=== PATIENT | female | born 1980 | race Caucasian/White ===

== ENCOUNTER 2021-11-28 08:53 | Outpatient (CLI) | payer OTHER, SELFPAY | END 2021-11-28 08:54 | disposition home or self-care (01) | PROVIDERS: Visit Provider Registered Nurse | DX: Z01.419 Encounter for gynecological examination (general) (routine) without abnormal findings (principal); F41.9 Anxiety disorder, unspecified | CPT/HCPCS: 84443 ==

== ENCOUNTER 2021-12-15 08:01 | Outpatient (CLI) | payer OTHER, SELFPAY ==
--- NOTE | 2021-12-15 08:15 | CRLHL7_ITS ---
For Patients: As a result of the Century Cures Act, medical imaging exams and procedure reports are released immediately into your electronic medical record. You may view this report before your referring provider. If you have questions, please contact your health care provider. INDICATION: Palpable lump in the right axilla. TECHNIQUE: Ultrasound of the right axilla with real-time grayscale and color Doppler imaging. COMPARISON: None. FINDINGS: There are 2 lymph nodes in the right axilla with normal morphology. Normal thin cortices with preserved echogenic casandra. The lymph nodes measure 1.5 x 1.0 x 0.5 cm and 1.4 x 0.9 x 0.7 cm. Nonenlarged with normal short axes. No mass or lymphadenopathy in the right axilla. IMPRESSION: Lymph nodes in the right axilla with normal size and morphology. Dictated by Salvatore Littlejohn MD @ 12/15/2021 8:52:07 AM (Electronically Signed)
== END 2021-12-15 08:02 | disposition home or self-care (01) ==
LOC: US 08:02
PROVIDERS: Visit Provider Registered Nurse
DX: R22.31 Localized swelling, mass and lump, right upper limb (principal)
CPT/HCPCS: 76882

== ENCOUNTER 2022-06-04 16:44 | Outpatient (CLI) | payer OTHER, SELFPAY ==
--- NOTE | 2022-06-04 17:00 | CRLHL7_ITS ---
For Patients: As a result of the Century Cures Act, medical imaging exams and procedure reports are released immediately into your electronic medical record. You may view this report before your referring provider. If you have questions, please contact your health care provider. LOWER EXTREMITY VENOUS INSUFFICIENCY, 06/05/2022 CLINICAL HISTORY: Right calf pain, varicose veins. COMPARISON: None. TECHNIQUE: The lower extremity veins were examined with collins-scale ultrasound, color-flow and Doppler spectral analysis. Compressibility of the veins by transducer pressure was used to evaluate the presence or absence of DVT/SVT at sites per exam specific protocol. Assessment of venous competence was performed by Doppler spectral analysis and was performed and documented at exam specific sites in an upright position for venous insufficiency studies. FINDINGS: DEEP SYSTEM: RIGHT: Vessel: CFV: Competent. SFV Prox: Competent. SFV Mid: Competent. SFV Distal: Competent. Pop: Competent. PTV1: Competent. PTV2: Competent. SUPERFICIAL SYSTEM: RIGHT: Vessel: SFJ: Competent. GSV Thigh Prox: Competent. GSV Thigh Mid: Competent. GSV Thigh Distal: Competent. GSV Calf Prox: Competent. GSV Calf Mid: Competent. GSV Calf Distal: Competent. LSV Prox: Competent. LSV Mid: Incompetent. FINDINGS: Right lower extremity: -No deep venous thrombosis or incompetence. -No superficial venous thrombosis. -Superficial venous incompetence in the SSV in the mid calf and incompetency of a wire splicer vein in the mid calf arising from the SSV. Duration of Retrograde Flow (Seconds) Deep Veins Superficial Veins Supervisor Anodizing veins PERFORATORS Supervisor Anodizing Location Diam (mm) Mid Calf SSV mid to PTVs 2.8 Incompetent Right mid SSV 0.6 seconds Supervisor Anodizing Vein 1 second. IMPRESSION: Right lower extremity: -No deep venous thrombosis or incompetence. -No superficial venous thrombosis. -Superficial venous incompetence in the mid calf at the SSV corresponding to site of focal pain. -Supervisor Anodizing vein in the midcalf arising from the SSV with incompetence. Clarissa Frye M.D. Vascular and Interventional Radiology [email or web address] Buster Transcribed: 9:25 a.[email or web address] JR/Dictated by: Clarissa Frye MD @ 06/08/2022 8:44:00 AM (Electronically Signed)
== END 2022-06-04 16:45 | disposition home or self-care (01) ==
LOC: US 16:45
DX: I83.813 Varicose veins of bilateral lower extremities with pain (principal)
CPT/HCPCS: 93971

== ENCOUNTER 2022-10-30 07:47 | Outpatient (CLI) | payer OTHER, SELFPAY ==
--- NOTE | 2022-10-30 07:45 | CRLHL7_ITS ---
For Patients: As a result of the Century Cures Act, medical imaging exams and procedure reports are released immediately into your electronic medical record. You may view this report before your referring provider. If you have questions, please contact your health care provider. BILATERAL SCREENING MAMMOGRAM WITH COMPUTER-AIDED DETECTION AND TOMOSYNTHESIS TECHNIQUE: CC, MLO and implant-displaced views were obtained. These mammographic images have been obtained using full-field digital technique. These mammographic images were interpreted with the benefit of computer-aided detection. Breast tomosynthesis was used in this interpretation. COMPARISON FILM: 09/02/21, 08/27/20. FINDINGS: The breasts are extremely dense, which lowers the sensitivity of mammography. IMPRESSION: There is no radiographic evidence for malignancy. ASSESSMENT: BI-RADS Category 2: Benign RECOMMENDATION: Routine screening mammogram in 1 year. A lay language report of this examination will be provided to the patient. ANDRIY DAMIAN M.D. Diagnostic Radiologist [email or web address] Transcribed: 10/30/2022, 3:[address]/Dictated by: Andriy Damian MD @ 10/30/2022 10:06:00 AM (Electronically Signed)
== END 2022-10-30 07:48 | disposition home or self-care (01) ==
LOC: MAMMO 07:48
PROVIDERS: Visit Provider Registered Nurse
DX: Z12.31 Encounter for screening mammogram for malignant neoplasm of breast (principal); R92.2 Inconclusive mammogram
CPT/HCPCS: 77063; 77067

== ENCOUNTER 2023-05-03 13:26 | Outpatient (CLI) | payer OTHER, SELFPAY ==
[2023-05-03 19:50] LABS: Bacterial Vaginosis* NEGATIVE (No Detected); Candida glab/krus NOT DETECTED (No Detected); Candida species NOT DETECTED (No Detected); Trichomonas vaginalis NOT DETECTED (No Detected)
== END 2023-05-03 13:27 | disposition home or self-care (01) ==
PROVIDERS: PCP Family Medicine; Visit Provider Family Medicine
DX: N89.8 Other specified noninflammatory disorders of vagina (principal); Z11.3 Encounter for screening for infections with a predominantly sexual mode of transmission; Z13.220 Encounter for screening for lipoid disorders; Z83.49 Family history of other endocrine, nutritional and metabolic diseases
CPT/HCPCS: 80053; 80061; 81513; 86258; 86803; 87481; 87661

== ENCOUNTER 2023-06-09 18:00 | Outpatient (CLI) | payer OTHER, SELFPAY ==
--- OUTSIDE RECORDS SUMMARY | 2023-06-09 18:03 | XMS_ITS | Clinical Summary ---
Author Name Unknown Organization [email or web address] [facility] Address [place], [place] [address] Care Team Providers Care Cook Dessert Name Role Phone Pcp, No Primary Care Provider Unavailabl e Allergies No known active allergies Medications Medication Sig Dispensed Refills Start Date End Date Status terbinafine (LAMISIL) 250 mg tabletIndications:Robles matophytosis of nail Take one tablet once daily for 7 days every 2 months. 28 tablet 3 01/11/2014 Active SUMAtriptan (IMITREX) 50 mg tablet Take 50 mg by mouth 2 times daily if needed for Migraine. Give at minimum 2hrs apart. Max Dose: 200mg per 24hrs. 0 Active MULTIVITAMIN (MULTIPLE VITAMIN ORAL) Take by mouth. 0 Active Encounters Date Type Department Care Team Description 05/04/2023 Lab Requisition [facility] [phone] Naty Barrett MD from Last 3 Months Social History Tobacco Use Types Packs/Day Years Used Date Smoking Tobacco: Never Alcohol Use Standard Drinks/Week Comments Not Asked 0 (1 standard drink = 0.6 oz pur e alcohol) Sex and Gender Information Value Date Recorded Sex Assigned at Not on file Gender Identity Not on file Sexual Orientation Not on file Obstetrics History Last Filed Vital Signs Vital Sign Reading Time Taken Comments Blood Pressure 110/75 10/29/2016 8:30 AM CDT Pulse 83 10/29/2016 8:30 AM CDT Temperature 36.6 ??C (97.9 ??F) 10/29/2016 8:20 AM CD T Respiratory Rate 16 10/29/2016 8:30 AM CDT Oxygen Saturation 99% 10/29/2016 8:30 AM CDT Inhaled Oxygen Concentration - - Weight 61.7 kg (136 lb) 10/29/2016 6:55 AM CDT Height 177.8 cm (5' 10) 10/29/2016 6:55 AM CDT Body Mass Index 19.51 10/29/2016 6:55 AM CDT Plan of Treatment Health Maintenance Due Date Last Done Comments COVID-19 vaccine series (#1) 01/23/1981 Tdap 07/25/1991 Depression screening for age 12+ 1992 HIV for age 15-65 07/25/1995 Hepatitis C screening for age 18-79 1998 Tetanus booster 2000 BMI (ht and wt on same day) for age 18+ 07/28/2017 07/28/2016 Influenza for age 9-49 12/18/2022 Pap test for age 21-65 05/03/2026 , 05/03/2023, 11/18/2018, Additional history exists Pneumococcal series for age 6-64 Aged Out No longer eligible based on patient's age to complete this topic Medical Devices Implanted Type Area Hl7 Interface Developer Device Identifier Shelf Expiration Date Model / Serial / Lot [id number] 7breast 325cc Memorygel Rnd High Smooth Silcn Implanted:Qty: 1 on 10/29/2016 by Andriy Badillo MD at [facility] Explanted:at [facility] (Quantity not on file) Right: Breast [employer] [place] [employer] 01/04/2021 [id number] # / [id number] 7breast 325cc Memorygel Rnd High Smooth Silcn Implanted:Qty: 1 on 10/29/2016 by Andriy Badillo MD at [facility] Explanted:at [facility] (Quantity not on file) Left: Breast [employer] 11/05/2020 [id number] # / [id number] Procedures Procedure Name Priority Date/Time Associated Diagnosis Comments LAB TRACKING EVENT Routine 05/03/2023 1: 45 PM WEB MARKETING INTERN HARP ACTION ASSEMBLER THIN PREP PAP SCREEN IMAGED Routine 05/03/2023 1:45 PM WEB MARKETING INTERN HPV THIN PREP Routine 05/03/2023 1:45 PM WEB MARKETING INTERN from Last 3 Months Results * LAB TRACKING EVENT (05/03/2023 1:45 PM WEB MARKETING INTERN) Other (Other) Client Collect / Unknown 05/03/2023 1:45 PM WEB MARKETING INTERN 05/04/2023 3:16 PM WEB MARKETING INTERN Naty Barrett MD LAB BILL ONLY [facility] [address] [place] [address], * HARP ACTION ASSEMBLER THIN PREP PAP SCREEN IMAGED (05/03/2023 1:45 PM WEB MARKETING INTERN) Case Report Gynecologic Cytology Report ? Case: [id number] ? Authorizing Provider: ??Naty Barrett MD ?? Collected: ? 05/03/2023 1345 ? Ordering Location: ? [facility] ?Received: ?05/04/2023 1809 ? First Screen: ?Helio, Karlo ? Specimen: ?HARP ACTION ASSEMBLER ThinPrep Vial Screening, Cervical ? 05/12/2023 10:05 AM WEB MARKETING INTERN [employer] [facility]AT[facility]-C ENTRAL LABORATORY INTERPRETATION/ RESULT NEGATIVE FOR INTRAEPITHELIAL LESION OR MALIGNANCY (NIL) (none) 05/12/2023 10:05 AM [facility] IMEN ADEQUACY Satisfactory for evaluation Endocervical component present 05/12/2023 10:05 AM [facility] HPV REQUEST HPV and PAP 05/12/2023 10:05 AM [facility] Date of LMP 05/12/2023 10:05 AM [facility] Comment:unknown Last Pap Date 11/18/2018 05/12/2023 10:05 AM [facility] Abnormal Pap or Flora Bx in last 5 years No 05/12/2023 10:05 AM [facility] Flora Bx Done Today No 05/12/2023 10:05 AM [facility] Additional Information 05/12/2023 10:05 AM [facility] Comment: Interpreted at [facility] - [address] [place] [id number] Automated Review Successful 05/12/2023 10:05 AM [facility] Comment:Specimen processed s uccessfully by automated drapery supervisor device, ThinPrep Imaging System, [employer] ANCILLARY TESTING HARP ACTION ASSEMBLER HPV Ordered, Please see separate report 05/12/2023 10:05 AM [facility] Note The pap test is a screening technique, not a diagnostic procedure. It is used primarily to screen for squamous cancers and precursor lesions. Published studies have shown that it is subject to both false negative and false positive results. The pap test should not be used as the sole means to diagnose or exclude pre-malignant and malignant lesions. 05/12/2023 10:05 AM [facility] Other (Cervical) 05/03/2023 1:45 PM WEB MARKETING INTERN 05/04/2023 6:09 PM WEB MARKETING INTERN Naty Barrett MD PATHOLOGY/CYTOLOG Y [facility] [address] [place] [address], * HPV HIGH RISK (05/03/2023 1:45 PM WEB MARKETING INTERN) TYPE 16 Negative Negative 05/06/2023 5:31 PM WEB MARKETING INTERN [facility] TYPE 18 Negative Negative 05/06/2023 5:31 PM WEB MARKETING INTERN [facility] OTHER HIGH RISK TYPES Negative Negative 05/06/2023 5:31 PM WEB MARKETING INTERN [facility] Other (Cervical) 05/03/2023 1:45 PM WEB MARKETING INTERN 05/04/2023 6:09 PM WEB MARKETING INTERN Narrative [facility] - 05/06/2023 5:31 PM WEB MARKETING INTERN HPV types 16, 18, 31, 33, 35, 39, 45, 51, 52, 56, 58, 59, 66 and 68 DNA were undetectable or below the pre-set threshold. Methodology: Vignesh Josiah 4800 HPV Test Naty Barrett MD MICROBIOLOGY [facility] [address] [place] [address], from Last 3 Months Advance Directives Latest Code Status on File Code Status Date Activated Date Inactivated Comments Full Code 10/29/2016 6:54 AM 10/29/2016 12:42 PM Care Teams Cook Dessert Relationship Specialty Start Date End Date Pcp, No . PCP - General 10/28/16
== END 2023-06-09 18:01 | disposition home or self-care (01) ==
LOC: LKVREF 18:01
PROVIDERS: PCP Family Medicine; Visit Provider Nurse Practitioner Family
DX: M79.675 Pain in left toe(s) (principal)
CPT/HCPCS: 84550

== ENCOUNTER 2024-01-04 16:43 | Outpatient (CLI) | payer OTHER, SELFPAY ==
--- NOTE | 2024-01-04 16:40 | CRLHL7_ITS ---
For Patients: As a result of the Century Cures Act, medical imaging exams and procedure reports are released immediately into your electronic medical record. You may view this report before your referring provider. If you have questions, please contact your health care provider. BILATERAL SCREENING MAMMOGRAM WITH COMPUTER-AIDED DETECTION AND TOMOSYNTHESIS TECHNIQUE: CC, MLO and Implant displaced views were obtained. These mammographic images have been obtained using full-field digital technique. These mammographic images were interpreted with the benefit of computer-aided detection. Breast Tomosynthesis was used in this interpretation. COMPARISON FILM: 10/30/22, 09/02/21, 08/27/20. FINDINGS: The breasts are extremely dense, which lowers the sensitivity of mammography. IMPRESSION: There is no radiographic evidence for malignancy. ASSESSMENT: BI-RADS Category 2: Benign RECOMMENDATION: Routine screening mammogram in 1 year. A lay language report of this examination will be provided to the patient. Andriy Gorman M.D. Diagnostic Radiologist [email or web address] SP/Dictated by: Andriy Gorman MD @ 01/05/2024 8:16:00 AM (Electronically Signed)
--- OUTSIDE RECORDS SUMMARY | 2024-01-04 16:45 | XMS_ITS | Clinical Summary ---
Author Organization [facility] Address [place], [place] [address] Care Team Providers Care Agitator Operator Name Role Phone Pcp, No Primary Care [...] 2hrs apart. Max Dose: 200mg per 24hrs. Active MULTIVITAMIN (MULTIPLE VITAMIN ORAL) Take by mouth. Active Encounters Date Type Department Care Team Description 11/23/2023 [facility] [address] [place] [address] [place] Park MD from Last 3 Months Immunizations Name Administration Dates Next Due Influenza, IIV3 (Age 6-35 mos) 03/08/2014 Td (Age >=7 Years) 11/02/2003 Tdap 07/26/2014,12/26/2013 Social History Tobacco Use Types Packs/Day Years [...] Health Maintenance Due Date Last Done Comments Depression screening for age 12+ 1992 HIV for age 15-65 07/25/1995 Hepatitis C screening for age 18-79 1998 BMI (ht and wt on same day) for age 18+ 07/28/2017 07/28/2016 COVID-19 vaccine series (2022- season) 2023 Influenza for age 9-49 12/19/2023 Tetanus booster 07/26/2024 07/26/2014, 12/2013, 11/02/2003 Pap test for age 21-65 05/03/2026 , 05/03/2023, 11/18/2018, Additional history exists Tdap Completed 07/26/2014, 12/26/2013 Pneumococcal series for age 6-64 Aged Out No longer eligible based on patient's age to complete this topic Medical Devices Implanted Type Area Systems Test Analyst Device Identifier Shelf Expiration Date Model / Serial / Lot [id number] 7breast 325cc Memorygel Rnd High Smooth Silcn Implanted:Qty: 1 on 10/29/2016 by Andriy Badillo MD at [facility] Explanted:at [facility] (Quantity not on file) Right: Breast [employer] 01/04/2021 [id number] # / [id number] / [id number] 7breast 325cc Memorygel Rnd High Smooth Silcn Implanted:Qty: 1 on 10/29/2016 by Andriy Badillo MD at [facility] Explanted:at [facility] (Quantity not on file) Left: Breast [employer] 11/05/2020 [id number] # / [id number] / [id number] Procedures Procedure Name Priority Date/Time Associated Diagnosis Comments HPV HIGH RISK Routine 05/03/2023 1:45 PM COUNTY CORONER from Last 3 Months or Most Recently Relevant to Health Maintenance Results * HPV HIGH RISK (05/03/2023 1:45 PM COUNTY CORONER) TYPE 16 Negative Negative 05/06/2023 5:31 PM COUNTY CORONER [facility] TYPE 18 Negative Negative 05/06/2023 5:31 PM COUNTY CORONER [facility] OTHER HIGH RISK TYPES Negative Negative 05/06/2023 5:31 PM COUNTY CORONER [facility] Other (Cervical) 05/03/2023 1:45 PM COUNTY CORONER 05/04/2023 6:09 PM COUNTY CORONER Narrative [facility] - 05/06/2023 5:31 PM COUNTY CORONER HPV types 16, 18, 31, 33, 35, 39, 45, 51, 52, 56, 58, 59, 66 and 68 DNA were undetectable or below the pre-set threshold. Methodology: Vignesh Josiah 4800 HPV Test Naty Barrett MD MICROBIOLOGY [facility] [address] [place] [address], from Last 3 Months or Most Recently Relevant to Health Maintenance Advance Directives * Full Code (Latest Code Status on File) Date Activated Date Inactivated Comments 10/29/2016 6:54 AM 10/29/2016 12:42 PM Care Teams Agitator Operator Relationship Specialty Start Date End Date Pcp, No . PCP - General 10/28/16
--- OUTSIDE RECORDS SUMMARY | 2024-01-04 16:45 | XMS_ITS | Encounter Summary ---
Author Organization [facility] Address [address] [place] [id number] Phone CareEverywhereSuppor Care Team Providers Care Content Production Specialist Name Role Phone Unavailable Primary Care Provider Unavailabl e Encounter Details Date Type Department Care Team (Late st Contact Info) Description 11/17/2023 Claims Summary [facility] [address] [place] [address] Provider, Claims Summary External, [address] [place] [address] Social History Tobacco Use Types Packs/Day Years Used Date Smoking Tobacco: Never Assessed Sex and Gender Information Value Date Recorded Sex Assigned at Not on file Gender Identity Not on file Sexual Orientation Not on file documented as of this encounter Plan of Treatment Not on file documented as of this encounter Visit Diagnoses Not on filedocumented in this encounter
--- OUTSIDE RECORDS SUMMARY | 2024-01-04 16:45 | XMS_ITS | Clinical Summary ---
Author Organization [facility] Address [address] [place] [address] Phone [email or web address] [email or web address] Care Team Providers Care Stopboard Assembler Name Role Phone Unavailable Primary Care Provider Unavailabl e Encounters Date Type Department Care Team Description 12/29/2023 Claims Summary [facility] [address] [place] [address] Provider, Claims Summary MD Mello 11/17/2023 Claims Summary [facility] [address] [place] [address] Provider, Claims Summary MD Mello from Last 3 Months Social History Tobacco Use Types Packs/Day Years Used Date Smoking Tobacco: Never Assessed Sex and Gender Information Value Date Recorded Sex Assigned at Not on file Gender Identity Not on file Sexual Orientation Not on file Plan of Treatment Not on file
--- OUTSIDE RECORDS SUMMARY | 2024-01-04 16:45 | XMS_ITS | Encounter Summary ---
Author Organization [facility] Address [address] [place] [address] Phone [email or web address] [email or web address] Care Team Providers Care Water Jet Operator Name Role Phone Unavailable Primary Care Provider Unavailabl e Encounter Details Date Type Department Care Team (Late st Contact Info) Description 12/29/2023 Claims Summary [facility] [address] [place] [address] Provider, Claims Summary External, [address] [place] [id number] Social History Tobacco Use Types Packs/Day [...]
== END 2024-01-04 16:44 | disposition home or self-care (01) ==
LOC: MAMMO 16:43
PROVIDERS: PCP Family Medicine; Visit Provider Family Medicine
DX: Z12.31 Encounter for screening mammogram for malignant neoplasm of breast (principal); R92.2 Inconclusive mammogram
CPT/HCPCS: 77063; 77067

== ENCOUNTER 2024-08-29 13:33 | Outpatient (CLI) | payer OTHER, SELFPAY | END 2024-08-29 13:34 | disposition home or self-care (01) | LOC: NFLDREF 09-06 00:04 | PROVIDERS: PCP Family Medicine; Referring Provider Family Medicine; Visit Provider Physician Assistant | DX: N39.0 Urinary tract infection, site not specified (principal); N92.1 Excessive and frequent menstruation with irregular cycle | CPT/HCPCS: 87086; 87186 ==

== ENCOUNTER 2024-08-31 17:17 | Outpatient (CLI) | payer OTHER, SELFPAY ==
--- NOTE | 2024-08-31 17:30 | CRLHL7_ITS ---
For Patients: As a result of the Century Cures Act, medical imaging exams and procedure reports are released immediately into your electronic medical record. You may view this report before your referring provider. If you have questions, please contact your health care provider. INDICATION: Menorrhagia COMPARISON: 12/01/2018 TECHNIQUE: 2D collins-scale and color Doppler images were acquired of the pelvis using a transabdominal and transvaginal approach. Transvaginal imaging performed to better visualize the endometrial stripe and ovaries. FINDINGS: Sonographic images demonstrate a normal size and smooth outer contour of the uterus. Uterus measures 10.4 cm in length by 5.6 cm in AP diameter by 7.4 cm in transverse dimension. The myometrium has a normal uniform echotexture. The endometrial lining measures 9.5 mm in composite thickness. The right ovary measures 3.2 x 1.7 x 2.9 cm in size and the left ovary is not visualized. The right ovary normal arterial and venous blood flow on color Doppler analysis. There are no suspicious fluid collections within the cul-de-sac. Simple right ovarian cyst is present which measures 1.8 x 1.8 x 1.6 cm. Increased periuterine vascularity noted. IMPRESSION: Endometrial thickness 9.5 millimeters Simple right ovarian cyst measures 1.8 cm. Suggestion of pelvic congestion syndrome. Dictated by Andriy Gorman MD @ 09/01/2024 11:12:31 AM (Electronically Signed)
== END 2024-08-31 17:18 | disposition home or self-care (01) ==
LOC: US 17:17
PROVIDERS: PCP Family Medicine; Visit Provider Physician Assistant
DX: N92.1 Excessive and frequent menstruation with irregular cycle (principal); R93.89 Abnormal findings on diagnostic imaging of other specified body structures
CPT/HCPCS: 76830; 76856

== ENCOUNTER 2025-02-06 15:19 | Outpatient (CLI) | payer OTHER, SELFPAY ==
--- NOTE | 2025-02-06 15:20 | CRLHL7_ITS ---
For Patients: As a result of the Cures Act, medical imaging exams and procedure reports are released immediately into your electronic medical record. You may view this report before your referring provider. If you have questions, please contact your health care provider. COMPARISON: 01/04/2024, 10/30/2022, 12/23/2021 TECHNIQUE: Digital mammogram in CC and MLO projections including computer-aided detection (CAD) and tomosynthesis. BREAST COMPOSITION: The breasts are heterogeneously dense, which may obscure small masses. FINDINGS: No suspicious findings. ASSESSMENT: BI-RADS 2 Benign RECOMMENDATION: Annual screening mammogram. A lay language report of this examination will be provided to the patient. Dictated by: Andriy Gorman MD @ 02/07/2025 10:12:40 (Electronically Signed)
== END 2025-02-06 15:20 | disposition home or self-care (01) ==
LOC: MAMMO 15:19
PROVIDERS: PCP Family Medicine; Visit Provider Family Medicine
DX: Z12.31 Encounter for screening mammogram for malignant neoplasm of breast (principal); R92.333 Mammographic heterogeneous density, bilateral breasts
CPT/HCPCS: 77063; 77067

== ENCOUNTER 2025-02-06 15:50 | Outpatient (CLI) | payer OTHER, SELFPAY | END 2025-02-06 15:51 | disposition home or self-care (01) | LOC: NFLDREF 02-10 15:34 | PROVIDERS: PCP Family Medicine; Referring Provider Family Medicine; Visit Provider Family Medicine | DX: Z00.00 Encounter for general adult medical examination without abnormal findings (principal) | CPT/HCPCS: 80053; 80061; 84443 ==